=== PATIENT | male | born 1955 | race Caucasian/White ===

== ENCOUNTER 2017-12-03 08:48 | Outpatient (CLI) | payer MEDICARE ==
--- NOTE | 2017-12-03 11:25 | CT Report ---
Reason: NICOTINE DEPENDENT Procedure Date: 12/03/2017 Accession Number: [id number] / [id number] Procedure: CT - Chest/Lung Screen Low Dose W/O CPT Code: FULL RESULT: EXAM CT LUNG SCREEN EXAM DATE: 12/03/2017 09:04 AM. HISTORY: 61-year-old patient with 99-clog-pzpt smoking history. Currently smoking: No. Years since quitting: Less than 1. COMPARISON: None. TECHNIQUE: CT examination of the entire thorax without contrast was performed using low-dose technique. Thin section coronal, axial, sagittal and MIP axial images were obtained. In accordance with CT protocol optimization, one or more of the following dose reduction techniques were utilized for this exam: automated exposure control, adjustment of mA and/or KV based on patient size, or use of iterative reconstructive technique. FINDINGS: Nodules: Right upper lobe: None. Right middle lobe: None. Right lower lobe: None. Left upper lobe: 3 mm average diameter subpleural nodule (4/31). Additional 3 mm average diameter subpleural nodule (4/47). 9 mm average diameter anterior groundglass nodule (4/57). Left lower lobe: None. Emphysema: Moderate upper lung predominant emphysema. Pleura: Unremarkable. Aorta: Unremarkable. Mediastinum: Unremarkable. Coronary calcifications: Coronary artery calcifications noted. Other pulmonary findings: Biapical pulmonary scarring. Other extrapulmonary findings: None. IMPRESSION: Lung-RADS ASSESSMENT CATEGORY: 2 - benign appearance and behavior Probability of malignancy: Less than 1% RECOMMENDATION: Continue annual screening with repeat low-dose chest CT in 12 months for surveillance per lung RADS guidelines. [facility]
== END 2017-12-03 08:49 | disposition home or self-care (01) ==
LOC: DI 08:48
PROVIDERS: ATTEND Student in an Organized Health Care Education/Training Program
DX: Z12.2 Encounter for screening for malignant neoplasm of respiratory organs (principal); Z87.891 Personal history of nicotine dependence